=== PATIENT | male | born 1995 | race Caucasian/White ===

== ENCOUNTER 2018-03-12 23:35 | Emergency (ER) | payer OTHER ==
[~2018-03-12] VITALS: Ht 185.4 cm; Wt 104.5 kg
[2018-03-12 23:53] VITALS: TEMP 97.5
[2018-03-13 00:47] VITALS: BP 149/101; PULSE 72
== END 2018-03-13 01:00 | disposition home or self-care (01) ==
LOC: COL.ER 23:35
DX: S06.0X0A Concussion without loss of consciousness, initial encounter (principal); S00.211A Abrasion of right eyelid and periocular area, initial encounter; R58 Hemorrhage, not elsewhere classified; W26.8XXA Contact with other sharp object(s), not elsewhere classified, initial encounter
CPT/HCPCS: J1885